=== PATIENT | female | born 1965 | race Caucasian/White ===

== ENCOUNTER 2018-02-15 07:46 | Emergency (ER) | payer OTHER ==
[2018-02-15] MEDS: ONDANSETRON HCL/PF 4 MG/ 2ML VIAL IVP ONE (07:58)
[2018-02-15] MEDS: MORPHINE SULFATE 10 MG/ML CARTRIDGE IVP ONE (08:00)
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
[2018-02-15 08:03] LABS: MEAN CORPUSCULAR HEMOGLOBIN 25.6 pg (28.0-34.0)
[2018-02-15 08:04] LABS: BASOPHILS % 0.5 (0.0-1.5); EOSINOPHILS % 2.3 % (0.0-6.8); MONOCYTES % 5.5 % (0.0-11.0); NEUTROPHILS # 9.4 # k/uL (1.4-7.7)
[2018-02-15 08:24] LABS: eGFR (Non-African) > 60
[2018-02-15] MEDS ORDERED: traMADol HCL 50 MG TABLET PO ONE (11:03)
[2018-02-15 11:58] LABS: CANNABINOIDS NEGATIVE ng/mL (< 50); METHYLENEDIOXYMETHAMPHETAMINE NEGATIVE ng/mL (<500)
[2018-02-15 13:09] VITALS: BP 110/57
[2018-02-15 15:48] LABS: APPEARANCE,URINE CLEAR (CLEAR); COLOR,URINE YELLOW (YELLOW)
[2018-02-15 15:49] LABS: OCCULT BLOOD,URINE NEGATIVE (NEGATIVE); PH URINE 6.5 (5.0 - 8.0); UROBILINOGEN URINE 0.2 Eu (0.2-1.0)
--- NOTE | 2018-02-16 08:29 | Diagnostic Imaging Report ---
YESSY BURCH [facility] [address] [facility] [address] [place] [address]. [id number] Report Submission Date: Feb 15, 2018 9:03:25 AM CDT Patient Study Name: JANINA BILLINGSLEY Date: Feb 15, 2018 8:18:29 AM CDT Modality Type: CT\SR Gender: F Description: CT BRAIN W/O CONTRAST : 61 Institution: [facility] Physician: YESSY BURCH Examination: CT head without contrast History: PT STATES HALLUCINATIONS. PT HAD TRIPLE BYPASS SURGERY 8 DAYS AGO. (Hx) Comparison exam: None available Technique: Noncontrast head CT protocol. Findings: Ventricles and sulci are appropriate for patient age. Cerebrocerebellar parenchyma demonstrates normal attenuation. No evidence for parenchymal hemorrhage. No evidence for mass or mass effect. No midline shift. No extra axial fluid collections. Partial visualization of the paranasal sinuses, mastoid air cells, orbits, skull and scalp without gross irregularity. Impression: No acute parenchymal process. No hemorrhage. Electronically signed on Feb 15, 2018 9:03:25 AM CDT by: Alli ESPINOZA
--- NOTE | 2018-02-16 08:36 | Diagnostic Imaging Report ---
YESSY BURCH [facility] [address] [facility].[address] [id number] Report Submission Date: Feb 15, 2018 9:05:06 AM CDT Patient Study Name: JANINA BILLINGSLEY Date: Feb 15, 2018 8:23:48 AM CDT Modality Type: DX Gender: F Description: CHEST : 61 Institution: [facility] Physician: YESSY BURCH Examination: PA and lateral chest. History: Evaluate lung cat. Comparison exam: None available. Findings: PA and lateral views of the chest demonstrates a prominent cardiac and mediastinal silhouette. Sternotomy wires. Bihilar vascular prominence. Mild interstitial fullness without focal infiltrate. No blunting of the costophrenic margins. Osseous structures are appropriate for age. Impression: Mild interstitial prominence however no focal consolidation or effusion. Electronically signed on Feb 15, 2018 9:05:06 AM CDT by: Alli ESPINOZA
== END 2018-02-15 13:06 | disposition left against medical advice (07) ==
LOC: ED 07:46
DX: R44.3 Hallucinations, unspecified (principal); Z86.79 Personal history of other diseases of the circulatory system; Z95.1 Presence of aortocoronary bypass graft; Z53.9 Procedure and treatment not carried out, unspecified reason
CPT/HCPCS: 70450; 71046; 80053; 80320; 80377; 81002; 84484; 85025; J2270; J2405; 96374; 96375; G0480; G0481; S1016